=== PATIENT | female | born 1975 | race Hispanic/Latino ===

== ENCOUNTER 2024-02-22 21:31 | Emergency (ER) | payer OTHER, SELFPAY ==
--- NOTE | ~2024-02-22 | CT_ITS ---
CT abdomen pelvis w con Ordering provider: Glenn Yee MD History: 48 years Female with . ABD pain . Comparison: None. Technique: CT abdomen and pelvis with IV and without oral contrast. Radiation reduction technique utilized. Findings: VISUALIZED LOWER CHEST: Normal. UPPER ABDOMINAL ORGANS: Liver: Normal. Gallbladder: Normal. Spleen: Normal. Stomach/duodenum: Normal. Pancreas: Normal. Adrenals: Normal. Kidneys: Normal. PELVIC ORGANS: The bladder is underfilled. The retroverted uterus The uterus is slightly bulky. Fluid in the uterus is seen. Clinical evaluation advised. Right ovarian follicle is noted. BOWEL AND MESENTERY: Colon: No evidence of diverticulitis. Normal appendix. Small Bowel: Normal. No obstruction. Peritoneum/mesentery: No free air or free fluid. No mesenteric lymphadenopathy. RETROPERITONEUM: Normal aorta. No retroperitoneal lymphadenopathy. MUSCULOSKELETAL: Superficial soft tissues: The superficial soft tissues are normal. Bones: Age appropriate degenerative changes of the spine. IMPRESSION: 1. No definite acute abdominal process with no evidence of appendicitis, diverticulitis or intestina l obstruction. 2. Slightly bulky uterus with minimal fluid. Clinical evaluation advised.Follicle in the right ovary with an enhancing rim.. Reviewed, dictated and finalized at location A. IMPRESSION: 1. No definite acute abdominal process with no evidence of appendicitis, diver ticulitis or intestinal obstruction. 2. Slightly bulky uterus with minimal fluid. Clinical evaluation advised.Folli murphy in the right ovary with an enhancing rim..
[2024-02-22 21:33] VITALS: PULSE 68; RESP 16; TEMP 36.3; O2SAT 100
[2024-02-22 21:50] LABS: Basophils Absolute Auto 0.1 K/mm3 (0.0-0.1); Basophils Percent Auto 0.8 % (0.2-1.2); Eosinophils Absolute Auto 0.1 K/mm3 (0-0.3); Eosinophils Percent Auto 1.3 % (0-4.4); Hematocrit 38.8 % (37.0-47.0); Hemoglobin 11.9 g/dL (12.0-15.0); Immature Granulocyte Absolute 0.03 K/mm3 (0.00-0.031); Immature Granulocyte Percent A 0.4 % (0-0.5); Lymphocytes Absolute Auto 2.83 K/mm3 (0.9-3.2); Lymphocytes Percent Auto 34.1 % (18.3-44.2); Mean Corpuscular HGB Conc 30.7 g/dl (32-36); Mean Corpuscular Hemoglobin 25.4 pg (26-34); Mean Corpuscular Volume 82.7 fl (80-100); Mean Platelet Volume 11.5 fl (7.4-10.4); Monocytes Absolute Auto 0.7 K/mm3 (0.1-0.6); Monocytes Percent Auto 8.1 % (2.6-8.5); Neutrophils Absolute Auto 4.6 K/mm3 (1.3-6.7); Neutrophils Percent Auto 55.3 % (45.5-73.1); Platelet Count Result 267 k/mm3 (150-375); Red Blood Count 4.69 M/mm3 (4.2-5.4); Red Cell Distribution Width 13.5 % (11.5-14.5); White Blood Count 8.3 K/mm3 (4.5-10.0)
[2024-02-22 21:59] VITALS: BP 128/56; PULSE 67; RESP 16; O2SAT 100
[2024-02-22 21:59] LABS: Alanine Aminotransferase 17 U/L (6-35); Albumin Level 4.2 g/dL (3.5-5.1); Alkaline Phosphatase 59 U/L (38-126); Anion Gap 5 mmol/L (4-12); Aspartate Amino Transferase 21 U/L (14-36); Bilirubin,Total 0.4 mg/dL (0.2-1.3); Blood Urea Nitrogen 13 mg/dL (7-17); Calcium 8.9 mg/dL (8.4-10.2); Carbon Dioxide 27 mmol/L (22-30); Chloride 105 mmol/L (98-107); Estimated CRCL calculation 93 ml/min; Estimated Glomerular Filt Rate > 60; Glucose 189 mg/dL (65-110); Lipase 122 U/L (23-300); Potassium 3.7 mmol/L (3.4-5.0); Sodium 137 mmol/L (137-145)
[2024-02-22 22:35] LABS: Appearance Urine Clear (Clear); Bacteria Urine None Seen /hpf; Bilirubin Urine Negative (Negative); Blood Urine Negative (Negative); Color Urine Yellow (Yellow); Glucose Urine UA Negative (Negative); Ketones Urine Trace mg/dL (Negative); Leukocyte Esterase Ur Trace LEU/UL (Negative); Nitrate Urine Negative (Negative); Non Pathogenic Casts 0-2; Protein Urine Negative (Negative); Specific Grav Ur 1.026 (1.001-1.035); Squamous Epithelial Cell Urine None Seen /hpf (Few); WBC Urine 0-5 /hpf (0-3); pH Urine 6.5 (5.0-9.0)
[2024-02-22 22:45] LABS: Add Urine Microscopic? YES
[2024-02-22 23:50] VITALS: BP 126/82; PULSE 67; RESP 18; O2SAT 100
--- NOTE | 2024-02-23 00:23 | ED.ABDPAIN ---
HPI - Abdominal Pain General Chief Complaint: Abdominal Pain Stated Complaint: abd pain Time Seen by Provider: 02/22/24 23:21 History of Present Illness HPI narrative: Patient is a 48-year-old female who presents to the emergency department this evening complaining of epigastric and right upper quadrant abdominal pain. Patient states that the pain was present earlier today before she had dinner and she thought that it was maybe due to her being so she had a home the pain continued even after she ate. Patient now states that the pain has completely resolved and is currently denying any abdominal pain, she also denies any chest pain or shortness of breath and denies any nausea and or vomiting episodes in the emergency department. Patient admits that she did have 2 vomiting episodes earlier today. Patient states that she is also on an antibiotic for urinary tract infection. Denies any additional symptoms or concerns at this time. Related Data Allergies Allergy/AdvReac Type Severity Reaction Status Date / Time No Known Allergies Allergy Mild Verified 03/13/10 14:10 Review of Systems Review of Systems: All systems are reviewed and are negative unless stated otherwise in the HPI. Exam Narrative: General: Alert, awake, afebrile, in no acute distress. HEENT: PERRL, no rhinorrhea, no post nasal drip, oropharynx clear. Cardiovascular: Regular rate and rhythm, no murmurs, rubs or gallops, no peripheral edema. Respiratory: Clear to auscultation bilaterally, no tachypnea, no wheezing, no rhonchi, no rubs, no respiratory distress. Abdomen: Soft, nontender in all 4 quadrants, nondistended, no rebound, no guarding, no peritoneal signs. Musculoskeletal: No joint swelling or deformity, normal muscle tone. Skin: No rashes or petechia, no signs of infection. Neurological: Alert and oriented to person, place, and time. Follows all commands. No focal deficits, speech is clear and fluent. Course Vital Signs Vital signs: Vital Signs Temperature 97.3 F L 02/22/24 21:33 Pulse Rate 68 02/22/24 21:33 Respiratory Rate 16 02/22/24 21:33 Pulse Oximetry 100 02/22/24 21:33 Oxygen Delivery Room Air 02/22/24 21:33 Temperature 97.3 F L 02/22/24 21:33 Pulse Rate 67 02/22/24 21:59 Respiratory Rate 16 02/22/24 21:59 Blood Pressure 128/56 L 02/22/24 21:59 Pulse Oximetry 100 02/22/24 21:59 Oxygen Delivery Room Air 02/22/24 21:33 MDM - Abdominal Pain MDM Narrative Medical decision making narrative: The patient was evaluated by myself in the emergency department. History is obtained from patient who is an independent historian and physical exam was performed. External medical records were reviewed at this time. IV was established and pertinent tests were ordered. Patient was administered along L IV fluid bolus with normal saline and 4 mg of IV Zofran for nausea and 40 mg of IV Protonix. Laboratory results obtained revealing no acute process. Imaging studies obtained included CT abdomen pelvis with IV contrast which was independently interpreted by me revealing no acute process, which is pending final radiology interpretation. Differential diagnosis considerations include acute cholecystitis, biliary colic, peptic ulcer disease and gastroenteritis. Patient was also informed that her upset stomach could be a side effect of the antibiotic that she is currently on for her urinary tract infection. Comorbidities impacting this visit include none. I have evaluated and discussed social determinants of health with the patient that could potentially impact subsequent diagnosis and treatment plans. On repeat assessment of the patient, reevaluation revealed that the patient is doing well and is in no acute distress. Patient symptoms have improved since she arrived to our emergency department. Repeat vital signs were all reviewed and noted to be stable. Differential diagnosis and treatment plan were discuss
[2024-02-23] MEDS: SODIUM CHLORIDE 0.9% IV 1,000 ML 999 ML IV CONT (00:26)
[2024-02-23] MEDS: PANTOPRAZOLE SODIUM IV 40 MG VIAL IV PUSH (00:27)
[2024-02-23] MEDS: ONDANSETRON INJ 4 MG/2 ML VIAL IV PUSH (00:27)
[2024-02-23 00:58] VITALS: BP 124/75; PULSE 67; RESP 15; O2SAT 99
== END 2024-02-23 00:59 | disposition home or self-care (01) ==
PROVIDERS: Emergency Provider Emergency Medicine; PCP Family Medicine
DX: R10.13 Epigastric pain (principal); R93.89 Abnormal findings on diagnostic imaging of other specified body structures
CPT/HCPCS: 36415; 74177; 80053; 81001; 81025; 83690; 85025; 96361; 96374; 96375; 99284; C9113; J2405; J7030; Q9967